=== PATIENT | male | born 1995 | race African-American/Black ===

== ENCOUNTER 2018-03-11 00:55 | Emergency (ER) | payer SELFPAY ==
[~2018-03-11] VITALS: Ht 165.1 cm; Wt 75.0 kg
[2018-03-11] MEDS ORDERED: BACITRACIN ZINC OINT UDPKT TOP ONE (03:30)
[2018-03-11] MEDS ORDERED: LIDOCAINE 1%/EPI 1:100,000 10 ML VIAL IJ ONE (03:30)
[2018-03-11] MEDS ORDERED: HYDROCODONE/ACETAMINOPHEN 5/325MG TABLET PO ONE (03:30)
[2018-03-11] MEDS ORDERED: TETANUS, DIPHTHERIA, PERTUSSIS VAC/PF 0.5ML (>7YR OLD) IM ONE (03:30)
[2018-03-11 03:39] VITALS: BP 122/77
== END 2018-03-11 05:35 | disposition home or self-care (01) ==
LOC: ER 00:55
DX: S61.412A Laceration without foreign body of left hand, initial encounter (principal); J45.909 Unspecified asthma, uncomplicated; W26.0XXA Contact with knife, initial encounter; Y93.89 Activity, other specified; Y92.89 Other specified places as the place of occurrence of the external cause; Y99.8 Other external cause status; Z98.890 Other specified postprocedural states
CPT/HCPCS: 12002; 90471; 90715; 99283; J3490

== ENCOUNTER 2019-11-30 13:52 | Emergency (ER) | payer MEDICAID ==
[~2019-11-30] VITALS: Ht 162.6 cm; Wt 74.5 kg
[2019-11-30] MEDS ORDERED: CEPHALEXIN 250MG CAPSULE PO ONE (15:15)
[2019-11-30] MEDS ORDERED: HYDROCODONE/ACETAMINOPHEN 5/325MG TABLET PO ONE (15:15)
[2019-11-30] MEDS ORDERED: TETANUS, DIPHTHERIA, PERTUSSIS VAC/PF 0.5ML (>7YR OLD) IM ONE (15:15)
[2019-11-30 16:49] VITALS: BP 128/91
== END 2019-11-30 16:50 | disposition home or self-care (01) ==
LOC: ER 13:52
DX: S68.125A Partial traumatic metacarpophalangeal amputation of left ring finger, initial encounter (principal); R03.0 Elevated blood-pressure reading, without diagnosis of hypertension; W23.0XXA Caught, crushed, jammed, or pinched between moving objects, initial encounter; Y93.89 Activity, other specified; Y92.098 Other place in other non-institutional residence as the place of occurrence of the external cause; Z23 Encounter for immunization
CPT/HCPCS: 73140; 90471; 90715; 99283